=== PATIENT | male | born 1935 | race Caucasian/White ===

== ENCOUNTER 2022-12-02 10:46 | Outpatient (CLI) | payer OTHER ==
[~2022-12-02] VITALS: Ht 190.5 cm; Wt 106.6 kg
[2022-12-02] MEDS ORDERED: albuterol 2.5 MG/3 ML nebule NEB ONE (11:20)
== END 2022-12-02 23:59 | disposition home or self-care (01) ==
LOC: RT 10:46
PROVIDERS: ATTEND Chiropractor
DX: J98.11 Atelectasis (principal); R94.2 Abnormal results of pulmonary function studies; J98.4 Other disorders of lung
CPT/HCPCS: 71046; 94060; 94760

== ENCOUNTER 2023-02-15 09:14 | Outpatient (CLI) | payer OTHER | END 2023-02-15 23:59 | disposition home or self-care (01) | LOC: CARD DIAG 09:14 | PROVIDERS: ATTEND Chiropractor | DX: I34.81 Nonrheumatic mitral (valve) annulus calcification (principal); I27.0 Primary pulmonary hypertension | CPT/HCPCS: 93306 ==